=== PATIENT | female | born 1970 ===

== ENCOUNTER 2023-08-28 16:42 | Emergency (ER) | payer OTHER ==
[2023-08-28] MEDS ORDERED: Metoprolol Succinate 50 MG Tab.ER PO ONE (18:00)
== END 2023-08-28 18:10 | disposition home or self-care (01) ==
LOC: FB.ED 16:42
DX: I10 Essential (primary) hypertension (principal); F41.1 Generalized anxiety disorder; J44.9 Chronic obstructive pulmonary disease, unspecified; E03.9 Hypothyroidism, unspecified; K21.9 Gastro-esophageal reflux disease without esophagitis; Z79.899 Other long term (current) drug therapy; Z88.5 Allergy status to narcotic agent; Z88.6 Allergy status to analgesic agent
CPT/HCPCS: 99283; A9270